=== PATIENT | male | born 1970 | race Caucasian/White ===

== ENCOUNTER 2019-06-22 17:53 | Inpatient (IN) | payer OTHER ==
[~2019-06-22] VITALS: Ht 180.3 cm; Wt 90.7 kg
[2019-06-22 18:07] LABS: BASOPHILS # (AUTO) 0.1 K/uL (0.0-8.0); BASOPHILS % (AUTO) 1.3 % (0.0-2.0); EOSINOPHILS # (AUTO) 0.3 K/uL (0.0-0.7); EOSINOPHILS % (AUTO) 3.2 % (0.0-7.0); HEMATOCRIT 45.4 % (36.7-47.1); HEMOGLOBIN 15.2 g/dL (12.5-16.3); LYMPHOCYTES # (AUTO) 2.3 K/uL (20.0-40.0); LYMPHOCYTES % (AUTO) 28.5 % (20.5-51.5); MEAN CORPUSCULAR HEMOGLOBIN 30.7 uug (23.8-33.4); MEAN CORPUSCULAR HGB CONC 34 g/dL (32.5-36.3); MEAN CORPUSCULAR VOLUME 91.6 fL (73.0-96.2); MONOCYTES # (AUTO) 0.6 K/uL (2.0-10.0); MONOCYTES % (AUTO) 7.6 % (0.0-11.0); NEUTROPHILS # (AUTO) 4.8 K/uL (1.8-8.9); NEUTROPHILS % (AUTO) 59.4 % (38.5-71.5); PLATELET COUNT (AUTO) 275 K/uL (152-348); RED BLOOD CELL COUNT(AUTO) 4.96 MIL/uL (4.06-5.63); WHITE BLOOD COUNT (AUTO) 8.1 K/uL (3.6-10.2)
[2019-06-22] MEDS ORDERED: GABA600T12 PO (18:32)
[2019-06-22] MEDS ORDERED: HYDR50CA PO (18:32)
[2019-06-22] MEDS ORDERED: DOXE50CA4 PO (18:32)
[2019-06-22] MEDS ORDERED: NALT50TA PO (18:32)
[2019-06-22] MEDS ORDERED: METH-406 PO (18:32)
[2019-06-22] MEDS ORDERED: CLON0.1T PO (18:32)
[2019-06-22 18:41] LABS: BILIRUBIN,DIRECT 0.1 mg/dL (0.0-0.2); BILIRUBIN,TOTAL 0.2 mg/dL (0.2-1.0); CREATININE 1.1 mg/dL (0.6-1.3); POTASSIUM 4.5 mmol/L (3.5-5.1)
[2019-06-22] MEDS ORDERED: KETOROLAC TROMETHAMINE 30 MG INJ ONE (19:06)
[2019-06-22] MEDS ORDERED: SWABABLE VALVE TRANSFER SET EA MC ONE (19:11)
[2019-06-22] MEDS ORDERED: IV NORMAL SALINE 250 ML IV ONE (19:11)
[2019-06-22] MEDS ORDERED: IOHEXOL 350 100 ML INFUS..BTL ONE (19:11)
[2019-06-22] MEDS ORDERED: KETOROLAC TROMETHAMINE 30 MG INJ IVP ONE (19:15)
--- NOTE | 2019-06-22 19:30 | NUR ---
Pt out of ER for CT.
--- NOTE | 2019-06-22 19:50 | NUR ---
Pt back to ER from CT.
[2019-06-22] MEDS ORDERED: ACETAMINOPHEN ES 500 MG TABLET ONE (20:27)
[2019-06-22] MEDS ORDERED: ACETAMINOPHEN ES 500 MG TABLET PO ONE (20:30)
[2019-06-22] MEDS ORDERED: IV NORMAL SALINE 1000 ML BAG IV ONE (20:30)
--- NOTE | 2019-06-22 21:07 | NUR ---
Pt states chestpain has subsided but still has a headache.
--- NOTE | 2019-06-22 21:26 | NUR ---
Pt's sponsor left patient's contact info in case admitted or transferred, [facility]: Andreas or Christina
--- NOTE | 2019-06-22 22:12 | NUR ---
Called [facility] to page Dr. Obi Porras
--- NOTE | 2019-06-22 23:06 | NUR ---
Report given to Jono MCBRIDE Tele.
--- NOTE | 2019-06-22 23:14 | NUR ---
Dr. Grossman on panel call with Dr. Obi Porras. Patient accepted for admission to [facility], diagnosis: chestpain.
[2019-06-22 23:37] VITALS: BP 113/73
[2019-06-23] MEDS ORDERED: ZOLPIDEM 5 MG TABLET PO PRN
[2019-06-23] MEDS ORDERED: ACETAMINOPHEN 325 MG TABLET PO PRN
[2019-06-23] MEDS: HYDROCODONE/APAP 5-325MG TABLET PO PRN ×4 (00:12→19:59)
[2019-06-23] MEDS ORDERED: CLONIDINE HCL 0.1 MG TABLET PO PRN (00:15)
[2019-06-23] MEDS ORDERED: ONDANSETRON 4 MG/2 ML VIAL IV PRN (00:15)
[2019-06-23 04:00] VITALS: BP 120/70
--- NOTE | 2019-06-23 05:17 | NUR ---
Admitted to room 302; no acute distress; denies chest pain but complains of headache; ice therapy done; Dr Porras gave admission orders and carried out. needs attended; safety maintained.
[2019-06-23 06:33] LABS: BASOPHILS # (AUTO) 0.1 K/uL (0.0-8.0); BASOPHILS % (AUTO) 1.7 % (0.0-2.0); EOSINOPHILS # (AUTO) 0.3 K/uL (0.0-0.7); EOSINOPHILS % (AUTO) 3.9 % (0.0-7.0); HEMATOCRIT 43.8 % (36.7-47.1); HEMOGLOBIN 14.5 g/dL (12.5-16.3); LYMPHOCYTES # (AUTO) 2.3 K/uL (20.0-40.0); LYMPHOCYTES % (AUTO) 34.8 % (20.5-51.5); MEAN CORPUSCULAR HEMOGLOBIN 29.7 uug (23.8-33.4); MEAN CORPUSCULAR HGB CONC 33 g/dL (32.5-36.3); MONOCYTES # (AUTO) 0.6 K/uL (2.0-10.0); MONOCYTES % (AUTO) 9.2 % (0.0-11.0); NEUTROPHILS # (AUTO) 3.3 K/uL (1.8-8.9); NEUTROPHILS % (AUTO) 50.4 % (38.5-71.5); PLATELET COUNT (AUTO) 251 K/uL (152-348); RED BLOOD CELL COUNT(AUTO) 4.87 MIL/uL (4.06-5.63); WHITE BLOOD COUNT (AUTO) 6.5 K/uL (3.6-10.2)
[2019-06-23 06:45] LABS: MAGNESIUM 1.8 mg/dL (1.8-2.4); PHOSPHOROUS 4.1 mg/dL (2.5-4.9)
[2019-06-23 06:53] LABS: BILIRUBIN,TOTAL 0.4 mg/dL (0.2-1.0); CREATININE 0.9 mg/dL (0.6-1.3); POTASSIUM 3.8 mmol/L (3.5-5.1); TOTAL PROTEIN, SERUM 6.3 g/dL (6.4-8.2)
[2019-06-23] MEDS ORDERED: PANTOPRAZOLE SODIUM 40 MG TABLET.DR PO SCH (07:00)
[2019-06-23] MEDS ORDERED: Medication Not On Formulary EA (Gabapentin 1 TAB) PO SCH (07:30)
[2019-06-23] MEDS ORDERED: METHOCARBAMOL 750 MG TABLET PO PRN (07:30)
[2019-06-23] MEDS ORDERED: HYDROXYZINE PAMOATE 50 MG PO SCH (07:30)
[2019-06-23] MEDS ORDERED: HYDROXYZINE PAMOATE 25 MG CAPSULE PO PRN (07:45)
[2019-06-23] MEDS ORDERED: GABAPENTIN 300 MG CAPSULE PO PRN (07:45)
--- NOTE | 2019-06-23 08:00 | NUR ---
Discussed plan of care with patient. Instructed pt to notify Nursing for any c/o chest pain. Pt agreeable with plan of care. Call light is within reach.
[2019-06-23 11:00] VITALS: BP 104/56
[2019-06-23] MEDS ORDERED: ASPIRIN 81 MG TAB.CHEW PO SCH (13:00)
[2019-06-23 15:30] VITALS: BP 109/62
--- NOTE | 2019-06-23 18:32 | NUR ---
Pt is in no acute distress. No chest pain noted. No elevated st. Pt cardiac cleared for discharge to [facility] sober living arranged by pillowcase maker. senior administrative support ETA [id number]. Pt refused to have vaccines and will f/u with his primary doctor. 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 No new prescription prescribed. Call light is within reach.
[2019-06-23 19:30] VITALS: BP 114/82
--- NOTE | 2019-06-23 20:43 | NUR ---
PT IS DISCHARGED IN IMPROVED CONDITION; PICKED UP BY FACILITY; ESCORTED BY TRANSITION MGR RN TO CAR. IV HL REMOVED
[2019-06-23] MEDS ORDERED: ATORVASTATIN 20 MG TABLET PO SCH (21:00)
== END 2019-06-23 20:00 | DRG 305 ==
LOC: ER 17:55 → TELE3 23:17
PROVIDERS: ADMIT Internal Medicine; ATTEND Nurse Practitioner Acute Care
DX: I16.0 Hypertensive urgency (principal); F10.11 Alcohol abuse, in remission; Y90.9 Presence of alcohol in blood, level not specified; L71.9 Rosacea, unspecified; E66.3 Overweight; Z68.27 Body mass index [BMI] 27.0-27.9, adult; E78.5 Hyperlipidemia, unspecified
CPT/HCPCS: 36415; 70030-TC; 71045; 71275; 83735; 84100; 85025; 93005; 93307; A4663; A9150; G0378; J1885; J7030; J7050; Q9967